=== PATIENT | male | born 1970 | race Caucasian/White ===

== ENCOUNTER → 2018-01-23 | Outpatient (CLI) | payer OTHER ==
[~2018-01-23] MED LIST: ABILIFY15 MG PO; ADVAIR HFA 1112 UNIT IH; COUMADIN 1MG TAB1 M1 PO; COUMADIN 5 MG TA5 M1 PO; DEPAKOTE 250MG250 M1 PO; JANTOVEN10 MG PO; LANTUS SC; LISINOPRIL10 MG PO; LOVASTAT20 PO; MOBIC15 MG PO; NEURONTIN600 MG PO; RANITIDINE 150150 MG PO; TAMSULOSIN HCL0.4 MG PO
--- NOTE | ~2018-01-23 | SLE ---
[facility] [place] [address] POLYSOMNOGRAPHY STUDY Name: HUGO KENDRICK Room #: [facility] M.R.#: [id number] Admission: 01/23/18 Attend Phys: Ortiz Amato MD Discharge: Date of : 72 Report #: [id number] THIS REPORT FOR: //name// CC: Yuliana Amato HISTORY OF PRESENT ILLNESS: A 47-year-old, height 6 feet 1 inch, weight 307 pounds. Positive history of sleep apnea, prior study 2009. SUGGESTIONS: IPAP of 22, EPAP of 17. COMMENTS: 1. PAC/PVC noted. 2. BiPAP titration night. 3. Titrated IPAP at 9, EPAP 04, 11/4, 12/4, 14/10, 16/10, 17/10, 19/11, 19/12, 21/, 22/, 23/, 24/, 25/, 25/, 25/. Had an IPAP of 25, EPAP of 14. The patient was seen for 254 minutes of sleep, which 54 minutes was in REM sleep. Apnea-hypopnea index 2 events per hour, low sat 87%. IMPRESSION: 1. Obstructive sleep apnea/hypopnea, G47.33. 2. Premature atrial contractions noted. 3. The patient was not seen in supine REM sleep at final pressure. SUGGESTIONS: 1. The patient will be cautioned regarding driving or operating dangerous machinery unless fully alert. 2. TSH and weight loss are recommended. 3. Oral appliance or appropriate surgery may be considered with polysomnographic followup. 4. A trial of IPAP of 24, EPAP of 14 is initially recommended. During our study, a Teknovus Simplus large mask was used with heated humidity of 4 and Bi-Flex of 3. 5. May consider Holter monitor. 6. If signs and symptoms do not improve with therapy, further evaluation is recommended. Please do not hesitate to contact me if I may be of further assistance. <ELECTRONICALLY SIGNED> By: Yuliana Escobedo MD 01/25/181940 35 03 uYliana Escobedo MD /nt
== END ==
LOC: SLEEPLAB 12:37
DX: G47.33 Obstructive sleep apnea (adult) (pediatric) (principal)